=== PATIENT | female | born 1980 | race African-American/Black ===

== ENCOUNTER 2017-11-28 00:42 | Emergency (ER) | payer OTHER ==
[~2017-11-28] VITALS: Ht 160 cm; Wt 95.3 kg
--- NOTE | ~2017-11-28 | EKG ---
[place] [address] [address] [facility] [place] [address] ELECTROCARDIOGRAM REPORT Name: MU MORALES Room [facility]: [facility] [id number] Admission: 11/28/17 Attend Phys: Discharge: 11/28/17 Date of : 76 Report #: [id number] THIS REPORT FOR: //name// [facility] ED Test Date: 2017-11-28 Test Time: 01:01:09 Pat Name: MU MORALES Department: Room: Gender: F Senior Mechanical Design Engineer: JOSÉ : 1980 Requested By: Yovany Alfaro Order Number: [id number] MD: Dominick Hernandes Measurements Intervals [place] Rate: 69 P: 6 [place]: 161 QRS: 2 QRSD: 98 T: 32 QT: 411 QTc: 441 Interpretive Statements Sinus rhythm Poor R wave progression No previous ECG available for comparison Electronically Signed On 11-28-2017 8:07:23 CDT by Dominick Hernandes [email or web address] <ELECTRONICALLY SIGNED> By: Dominick Hernandes MD, [facility] 11/28/17 0807 0101 0101 Dominick Hernandes MD, FACC /EPI
[2017-11-28 01:20] LABS: ABSOLUTE NEUTROPHILS 6.1 thou/uL (1.4-8.2); EOSINOPHILS 2.9 % (0.0-3.0); HEMATOCRIT 38.9 % (37.0-47.0); HEMOGLOBIN 13.3 gm/dL (12.0-15.0); LYMPHOCYTES 34.4 % (24.0-44.0); MCH 27.6 pg (26.0-34.0); MCHC 34.2 g/dL (28.0-37.0); MCV 80.9 fL (80.0-100.0); MONOCYTES 4.8 % (1.0-8.0); PLATELET COUNT 318 thou/uL (150-400); POLYS 56.9 % (36.0-66.0); RBC 4.81 mil/uL (4.20-5.00); RDW 13.9 % (10.5-14.5); WBC 10.7 thou/uL (4.0-11.0)
[2017-11-28 01:26] LABS: ANION GAP 9 mmol/L (7-16); BUN 13 mg/dL (7-18); CALCIUM 8.7 mg/dL (8.5-10.1); CHLORIDE 103 mmol/L (98-107); CO2 28 mmol/L (21-32); GLUCOSE 101 mg/dL (74-106); POTASSIUM 3.6 mmol/L (3.5-5.1); SODIUM 140 mmol/L (136-145)
[2017-11-28 01:35] LABS: ALBUMIN 3.3 g/dL (3.4-5.0); SGOT 16 U/L (15-37); SGPT 19 U/L (30-65); TOTAL BILIRUBIN 0.3 mg/dL (<0.1-1.0); TOTAL PROTEIN 7.2 g/dL (6.4-8.2); TROPONIN-I < 0.04 ng/mL (<0.06)
[2017-11-28] MEDS ORDERED: PEPCID20 MG PO (03:20)
[2017-11-28 03:28] VITALS: BP 145/95
== END 2017-11-28 03:28 | disposition home or self-care (01) ==
LOC: ER 00:42
PROVIDERS: Emergency Medicine
DX: R07.89 Other chest pain (principal); Z90.49 Acquired absence of other specified parts of digestive tract

== ENCOUNTER 2020-07-26 23:47 | Emergency (ER) | payer OTHER ==
[~2020-07-26] VITALS: Ht 160 cm; Wt 102.1 kg
[~2020-07-26 23:47] MED LIST: PEPCID20 MG PO
[2020-07-26] MEDS ORDERED: OMEPRAZOLE 20 M20 M1 PO (23:56)
[2020-07-26] MEDS ORDERED: JUNEL FE 1.5-31 EACH PO (23:56)
[2020-07-26] MEDS ORDERED: ACYCLOVIR 400400 MG PO (23:56)
[2020-07-26] MEDS ORDERED: LOSARTAN POTASS50 MG PO (23:57)
[2020-07-27 01:01] LABS: ABSOLUTE NEUTROPHILS 8.9 thou/uL (1.4-8.2); BASOPHILS 1.2 % (0.0-2.0); EOSINOPHILS 2.2 % (0.0-3.0); HEMATOCRIT 37.4 % (37.0-47.0); HEMOGLOBIN 12.3 gm/dL (12.0-15.0); LYMPHOCYTES 28.9 % (24.0-44.0); MCH 26.4 pg (26.0-34.0); MCHC 32.8 g/dL (28.0-37.0); MCV 80.6 fL (80.0-100.0); MONOCYTES 3.8 % (1.0-8.0); PLATELET COUNT 334 thou/uL (150-400); POLYS 63.9 % (36.0-66.0); RBC 4.64 mil/uL (4.20-5.00); RDW 14.6 % (10.5-14.5)
[2020-07-27 01:34] LABS: ANION GAP 11 mmol/L (7-16); BUN 10 mg/dL (7-18); CALCIUM 8.7 mg/dL (8.5-10.1); CHLORIDE 104 mmol/L (98-107); CO2 24 mmol/L (21-32); CREATININE 0.9 mg/dL (0.6-1.0); GLUCOSE 132 mg/dL (74-106); POTASSIUM 3.4 mmol/L (3.5-5.1); SODIUM 139 mmol/L (136-145)
[2020-07-27 01:44] LABS: ALBUMIN 3.1 g/dL (3.4-5.0); SGOT 13 U/L (15-37); SGPT 17 U/L (14-59); TOTAL BILIRUBIN 0.2 mg/dL (0.2-1.0); TOTAL PROTEIN 7.1 g/dL (6.4-8.2); TROPONIN-I <0.06 ng/mL (<0.06)
[2020-07-27 05:02] VITALS: BP 129/74
--- NOTE | 2020-07-28 07:20 | EKG ---
[place] [address] [facility] [place] [address] ELECTROCARDIOGRAM REPORT Name: MU MORALES [facility] [id number] Admission: 07/26/20 Attend Phys: Discharge: 07/27/20 Date of : 76 Report #: [id number] [facility] ED Test Date: 2020-07-26 Test Time: 23:55:06 Pat Name: MU MORALES Department: Room: Gender: F [place] T[employer]: ADAM : 1980 Requested By: Pankaj Cody Order Number: [id number] MD: Oseas Morillo Measurements Intervals [place] Rate: 70 P: 54 [place]: 157 QRS: 10 QRSD: 95 T: 41 QT: 389 QTc: 420 Interpretive Statements Sinus rhythm Baseline wander in lead(s) V1 Compared to ECG 11/28/2017 01:01:09 Poor R-wave progression no longer present Electronically Signed On 07-28-2020 7:20:37 [employer]APH[employer] TE[employer] by Oseas Morillo [email or web address] <ELECTRONICALLY SIGNED> By: Oseas Morillo MD, [facility] 07/28/20 0720 [id number] Oseas Morillo MD, FACWali /EPI
== END 2020-07-27 05:05 | disposition home or self-care (01) ==
LOC: ER 23:47
PROVIDERS: Emergency Medicine
DX: R07.9 Chest pain, unspecified (principal); Z79.899 Other long term (current) drug therapy